=== PATIENT | male | born 1940 | race Caucasian/White ===

== ENCOUNTER 2016-11-25 20:34 | Observation (INO) | payer MEDICARE, BC ==
--- NOTE | ~2016-11-25 | HP ---
History And Physical [id number] [place]. [address] NAME: ARIK BACA BONIFACIO : 36 STATUS : ADM Gopal PAT#: [id number] AGE: 76 ADM/REG DATE : 11/25/16 MR#: [id number] REPORT SERV DATE: 11/26/16 DICTATED BY: KELLEY COYNE DATE: 11/26/16 REPORT STATUS : Draft TRANSCRIBED BY: MODMart DATE: 11/26/16 DATE OF ADMISSION: 11/25/2016 PRIMARY CARE PHYSICIAN: Juan Luong M.D. CHIEF COMPLAINT: Chest pain. HISTORY OF PRESENT ILLNESS: This is a very pleasant, very active 76-year-old male with no prior coronary artery disease. He states a three-day history of midsternal chest pain. He states the chest pain "hurts when I move to the right or left." Yesterday, his family including his and daughter observed him not to do his normal yard work. Typically, they say he is very active on their home acreage, doing activities like cutting wood and operating the tractor. Yesterday, the patient states he just did not feel well and did not even feel like he could lift the groceries. He states the chest pains typically lasts 2 to 3 minutes and there is no specific relation to exertion. There is no pleuritic component nor it is reproducible through various ranges of motion. There was no accompanying shortness of breath. He came to emergency department last evening and was given full-dose aspirin and admitted to our chest pain observation unit. He has had no further chest pains while here. The patient denies personal history for AR, DVT, or PE. The patient's family states he has a history of multiple TIAs with most recent in 2011. The patient denies any orthopnea, PND, lower extremity edema, or palpitations. MEDICAL HISTORY: 1. Hypertension. 2. Insulin dependent diabetes mellitus. 3. Hypothyroidism. 4. Depression. 5. Mixed hyperlipidemia. 6. Obstructive sleep apnea, compliant with CPAP therapy. 7. History of TIAs. SURGICAL HISTORY: 1. Appendectomy. 2. Right and left hernia repairs. HOME MEDICATIONS: Amlodipine 10 daily, aspirin 81 daily, Wellbutrin 150 sustained release twice a day, calcium carbonate 600 twice a day, NovoLog insulin 6 units p.r.n. for blood glucose greater than 150, Lantus insulin 30 units every morning, Lantus insulin 12 units every evening, levothyroxine 75 mcg daily, Antivert 25 mg b.i.d. p.r.n. for vertigo, fish oil 1000 mg b.i.d., Systane eyedrops daily p.r.n. both eyes, saw palmetto two tabs b.i.d., Zocor 20 mg at bedtime, Diovan HCT 160/12.5 one tab daily. ALLERGIES: NO KNOWN DRUG ALLERGIES. History And Physical [address] [place]. [address] NAME: ARIK BACA BONIFACIO : 36 STATUS : ADM Gopal PAT#: [id number] AGE: 76 ADM/REG DATE : 11/25/16 MR#: [id number] REPORT SERV DATE: 11/26/16 DICTATED BY: KELLEY COYNE DATE: 11/26/16 REPORT STATUS : Draft TRANSCRIBED BY: LIZETH DATE: 11/26/16 SOCIAL HISTORY: The patient is , at bedside. He is retired from the [employer] industry. Maintains active lifestyle at home. Smoked as a teenager, none since. Denies alcohol or illicit drug use. FAMILY HISTORY: Mother with "heart problems" and father with history of strokes, but both lived to late in life. No premature cardiovascular disease among first-degree relatives. REVIEW OF SYSTEMS: Negative except as indicated above. PHYSICAL EXAMINATION: VITAL SIGNS: Blood pressure 144/67, heart rate 50 to 60, temperature 97.8, pulse oximetry 96% on room air, BMI 24.1. GENERAL: Well developed, well nourished, in no acute distress HEENT: Anicteric. Normal EOM. Head normocephalic. PERRLA, no xanthelasma. NECK: Supple. No JVD. Carotids normal without bruits. LUNGS: Clear to auscultation bilaterally anterior and posterior. Respirations even and unlabored. CARDIAC: S1, S2 regular rate and rhythm. No murmurs, rubs, or gallops. No chest wall tenderness. ABDOMEN: Normal bowel sounds. Soft and nontender to palpation. No masses or organomegaly. EXTREMITIES: No peripheral edema. DP/PT and radial pulses palpable bilaterally. No clubbing or cyanosis. SKIN: Warm and dry. Normal turgor. No pallor or cyanosis. MUSCULOSKELETAL: Moving all extremities x4. Normal muscle strength. NEURO/PSYCH: Alert and oriented with appropriate affect. LABORATORY DATA: White blood count 8.0, hemoglobin 13.6, hematocrit 40.9. Sodium 143, potassium 3.7, BUN 25, creatinine 1.0. Troponin less than 0.02 x3. Chest x-ray showed no acute cardiopulmonary processes. EKGs interpreted by myself indicated sinus rhythm with borderline first-degree AV block. ASSESSMENT AND PLAN: 1. Midsternal chest pain in this 76-year-old male with cardiovascular risk factors of hypertension, hyperlipidemia, and diabetes. He has been observed overnight in the Chest Pain Observation Unit and is negative for acute coronary syndrome. Recommend proceeding with a nuclear stress test today. If this is low risk, we will plan to discharge him home and recommend close followup with his primary care physician within the next one to two weeks. 2. Hypertension, controlled on amlodipine and Diovan HCT, we will continue. 3. Mixed hyperlipidemia, on statin therapy, we will continue. The patient may benefit from higher intensity statin, given his history of diabetes. We will leave this to his primary care physician. 4. Insulin dependent diabetes mellitus, blood glucose has been normal while he has been here. [place] level 1 sliding scale insulin protocol as needed. History And Physical [address] [address] NAME: ARIK BACA BONIFACIO : 36 STATUS : ADM Gopal PAT#: [id number] AGE: 76 ADM/REG DATE : 11/25/16 MR#: [id number] REPORT SERV DATE: 11/26/16 DICTATED BY: KELLEY COYNE DATE: 11/26/16 REPORT STATUS : Draft TRANSCRIBED BY: MODL DATE: 11/26/16 DBT/MODMart Kelley Coyne NP / [id number] CC: Lizzeth Chatman, MSN, [employer] CLERK-BC
[2016-11-25 19:37] LABS: BASOPHILS 0.5 %; BASOPHILS ABSOLUTE 0.04 10/3/uL (0.0-0.16); EOSINOPHILS 3.3 %; EOSINOPHILS ABSOLUTE 0.26 10/3/uL (0.0-0.53); ER CBC TAT 0 Hrs 10 Mins; HEMATOCRIT 40.9 % (40.0-51.0); HEMOGLOBIN 13.6 g/dL (13.6-17.8); IMMATURE GRANULOCYTES 0.3 %; IMMATURE GRANULOCYTES ABSOLUTE 0.02 10/3/uL (0.0-0.11); LYMPHOCYTES 22.5 %; MEAN CORPUS HGB CONC 33.3 g/dL (32.0-36.0); MEAN CORPUSCULAR HEMOGLOB 30.1 pg (26.0-34.0); MEAN CORPUSCULAR VOLUME 90.5 fL (80-100); MONOCYTES 7.9 %; MONOCYTES ABSOLUTE 0.63 10/3/uL (0.21-1.20); NEUTROPHILS 65.5 %; NEUTROPHILS ABSOLUTE 5.24 10/3/uL (2.02-8.40); PLATELET COUNT 183 10/3/uL (150-400); RBC DISTRIBUTION WIDTH 12.9 % (12.0-16.0); RED CELL COUNT 4.52 10/6/uL (4.7-6.1)
[2016-11-25 19:38] LABS: MANUAL DIFF NO %
[2016-11-25 19:52] LABS: INTERNATIONAL NORMAL RATI 1.1 UNITS (-); PARTIAL THROMBO TIME 28.5 SEC (22.5-37.2); PROTIME (NOT ORD) 14.1 SEC (12.0-14.5)
[2016-11-25 19:53] LABS: BUN (BLOOD UREA NITROGEN) 25 MG/DL (6-23); CALCIUM, SERUM 9.1 MG/DL (8.5-10.4); CHEST PAIN PROFILE TAT 0 Hrs 26 Mins; CHLORIDE, SERUM 104 MMOL/L (96-112); CO2 (CARBON DIOXIDE) 34 MMOL/L (24-34); CREATININE 1.05 MG/DL (0.70-1.30); GFR AFRICAN AMERICAN 78 ML/MIN (>=60); GFR NON AFRICAN AMERICAN 68 ML/MIN (>=60); GLUCOSE, SERUM 175 MG/DL (60-99); POTASSIUM, SERUM 3.7 MMOL/L (3.5-5.3); SODIUM, SERUM 143 MMOL/L (135-148); TROPONIN I <0.02 NG/ML (<0.05)
[2016-11-25] MEDS ORDERED: LANTUS SC ×2 (21:39)
[2016-11-25] MEDS ORDERED: NOVOLOG SC (21:40)
[2016-11-25] MEDS ORDERED: ZOCOR20 PO (21:40)
[2016-11-25] MEDS ORDERED: DIOVAN HC1 PO (21:40)
[2016-11-25] MEDS ORDERED: LEVOTHYROXIN75 MCG PO (21:41)
[2016-11-25] MEDS ORDERED: WELLSR150 PO (21:41)
[2016-11-25] MEDS ORDERED: NORV10 PO (21:41)
[2016-11-25] MEDS ORDERED: ASAB PO (21:43)
[2016-11-25] MEDS ORDERED: MCZ25 PO (21:43)
[2016-11-25] MEDS ORDERED: CALTRAT600 PO (21:43)
[2016-11-25] MEDS ORDERED: SAW PALMETT2 PO (21:43)
[2016-11-25] MEDS ORDERED: SYSTANE OPH (21:44)
[2016-11-25] MEDS ORDERED: FISH-EPA1000 MG PO (21:44)
== END 2016-11-26 12:57 | disposition home or self-care (01) ==
LOC: ER 20:34 → CDU1 20:40
PROVIDERS: Emergency Medicine
DX: R07.89 Other chest pain (principal); I10 Essential (primary) hypertension; E11.9 Type 2 diabetes mellitus without complications; E03.9 Hypothyroidism, unspecified; E78.2 Mixed hyperlipidemia; F32.9 Major depressive disorder, single episode, unspecified; G47.33 Obstructive sleep apnea (adult) (pediatric); Z86.73 Personal history of transient ischemic attack (TIA), and cerebral infarction without residual deficits; Z87.891 Personal history of nicotine dependence; Z82.49 Family history of ischemic heart disease and other diseases of the circulatory system; Z82.3 Family history of stroke; Z90.49 Acquired absence of other specified parts of digestive tract; Z79.82 Long term (current) use of aspirin; Z79.4 Long term (current) use of insulin; Z79.899 Other long term (current) drug therapy; Z98.890 Other specified postprocedural states
CPT/HCPCS: 71020; 78451; 80048; 82962; 83735; 84484; 85025; 85610; 85730; 93005; 93017; 99285; A9270-GY; A9502; G0378